=== PATIENT | female | born 1990 | race Caucasian/White ===

== ENCOUNTER 2022-05-23 14:06 | Emergency (ER) | payer MEDICAID, SELFPAY ==
[2022-05-23 14:39] VITALS: BP 126/99; PULSE 75; RESP 18; TEMP 36.1; O2SAT 96; BMI 29.3
--- NOTE | 2022-05-23 15:04 | ED_ITS ---
HPI - General Adult General Chief complaint: Altered Mental Status Stated complaint: Anxiety Time Seen by Provider: 05/23/22 14:41 History of Present Illness HPI narrative: This 32-year-old female comes in reporting lots of anxiety with associated insomnia. She states that she is moving and has lots of increased anxiety related to this. She has been taking her medications as prescribed and these are not helping her enough. She denies using any other medications or street drugs. She does not take alcohol. She denies having any suicidal plans or ideations. She states that she has slept about an hour each of the last 3 nights. She gets up and takes a shower which helps temporarily but still does not get back to sleep. Related Data Home Medications Medication Instructions Recorded Confirmed acetaminophen 500 mg tablet mg 05/23/22 aripiprazole 20 mg tablet mg 05/23/22 aripiprazole 30 mg tablet mg 05/23/22 buprenorphine 4 mg-naloxone 1 mg film 05/23/22 sublingual film (Suboxone) carisoprodol 350 mg tablet mg 05/23/22 cetirizine 10 mg tablet mg 05/23/22 eszopiclone 3 mg tablet mg 05/23/22 gabapentin 800 mg tablet mg 05/23/22 hydroxyzine HCl 50 mg tablet mg 05/23/22 hyoscyamine sulfate 0.125 mg tablet mg 05/23/22 ibuprofen 600 mg tablet mg 05/23/22 oxcarbazepine 300 mg tablet mg 05/23/22 prazosin 1 mg capsule mg 05/23/22 propranolol 10 mg tablet mg 05/23/22 rizatriptan 10 mg tablet mg 05/23/22 tizanidine 4 mg tablet mg 05/23/22 venlafaxine 75 mg tablet mg 05/23/22 Allergies Allergy/AdvReac Type Severity Reaction Status Date / Time amoxicillin Allergy Mild Verified 05/23/22 14:50 Review of Systems Status of ROS: Reports: 10 or more systems reviewed and unremarkable except as noted in History and below Narrative: Constitutional: No fevers, no weight gain or loss. Eyes: No discharge. No vision changes. HENT: No congestion, no sore throat, no ear pain. Cardiovascular: No chest pain, no palpitations. Respiratory: No shortness of breath, no wheezes, no cough. Gastrointestinal: No abdominal pain, no vomiting, no diarrhea. Genitourinary: No dysuria, no hematuria. Musculoskeletal: Normal range of motion. Skin: No rashes, no pruritis. Neurological: No dizziness, weakness, sensory change, speech change. Endo/Heme/Allergies: No bruising or bleeding. No polydipsia. Pysch: no suicidality. Anxiety with insomnia as described above. All other systems reviewed and are negative. Exam Narrative: Exam Narrative: Constitutional: Well-developed, well-nourished, no acute distress. HEENT: Normocephalic, atraumatic. Neck: Normal range of motion. Nontender. Supple. Heart: Intact distal pulses. Lungs: No chest discomfort. No wheezes, rhonchi, or rales. Abdomen: Nontender. Back: Normal range of motion. Extremities: Normal range of motion. No injury. Skin: Intact. No rash. Warm. No erythema or pallor. Neurologic: No altered sensation. No weakness. Alert and oriented. Psychiatric: The patient denies any suicidal thoughts or plans. She reports lots of anxiety. She is pleasant and cooperative. Nursing notes and vitals signs are reviewed. Const: Vital Signs, click to edit/add: Vital Signs - 24 hr 05/23/22 14:39 Temperature 97.0 F L Pulse Rate [Right Pulse Oximeter] 75 Respiratory Rate 18 Blood Pressure [Ri ght Upper Arm] 126/99 H Pulse Oximetry 96 Oxygen Delivery Me thod Room Air Course Vital Signs Vital signs: Initial Vital Signs Temperature 97.0 F L 05/23/22 14:39 Temperature Source Temporal Artery Scan 05/23/22 14:39 Pulse Rate 75 05/23/22 14:39 Pulse Rhythm 05/23/22 14:39 Respiratory Rate 18 05/23/22 14:39 Blood Pressure 126/99 H 05/23/22 14:39 Blood Pressure Mean 108 05/23/22 14:39 Blood Pressure Position Sitting 05/23/22 14:39 Pulse Oximetry 96 05/23/22 14:39 Oxygen Delivery Method 05/23/22 14:39 Vital Signs Temperature 97.0 F L 05/23/22 14:39 Pulse Rate 75 05/23/22 14:39 Respiratory Rate 18 05/23/22 14:39 Blood Pressure 126/99 H 05/23/22 14:39 Pulse Oximetry 96 05/23/22 14:39 Oxygen Delivery Method 05/23/22 14:39 Temperature 97.0 F L 05/23/22 14:39 Pulse Rate 75 05/23/22 14:39 Respiratory Rate 18 05/23/22 14:39 Blood Pressure 126/99 H 05/23/22 14:39 Pulse Oximetry 96 05/23/22 14:39 Oxygen Delivery Method 05/23/22 14:39 Medical Decision Making MDM Narrative Medical decision making narrative: This patient comes in with increased anxiety and states that she has not been able to connect with her primary physician recently as the physician is not available. She did receive a 1 mg Ativan tablet orally. I provided a prescription for 10 tablets of the same medicine and dose. She understands that we will not refill this out of the emergency department. She will need to follow-up with her primary physician for any ongoing management of anxiety. Discharge Plan Discharge Clinical Impression: Anxiety Patient Disposition: Home, Self-Care Condition: Unchanged Instructions: Anxiety (ED) Additional Instructions: Take medication as needed and prescribed. Follow up with primary physician for ongoing management needs. Prescriptions: No Action carisoprodol 350 mg tablet Label Comments: TAKE ONE TABLET BY MOUTH EVERY DAY AT BEDTIME NEEDED FOR SLEEP venlafaxine 75 mg tablet Label Comments: TAKE THREE TABLETS BY MOUTH EVERY DAY . cetirizine 10 mg tablet Label Comments: TAKE ONE TABLET BY MOUTH EVERY DAY NEEDED FOR ALLERGIES. tizanidine 4 mg tablet Label Comments: TAKE ONE TABLET BY MOUTH EVERY MORNING , AT NOON , AND TAKE THREE TABLETS BY MOUTH AT BEDTIME prazosin 1 mg capsule Label Comments: TAKE ONE CAPSULE BY MOUTH EVERY DAY FOR 3 DAYS, THEN TAKE TWO CAPSULES BY MOUTH EVERY DAY FOR 7 DAYS, THEN TAKE THREE CAPSULES BY MOUTH EVER rizatriptan 10 mg tablet Label Comments: TAKE 1 TABLET BY MOUTH WITH ONSET OF HEADACHE. MAY REPEAT IN 2 HOURS. MAX OF 30 MG IN 24 HOURS AND MAX OF 5 DAYS PER MONTH. hydroxyzine HCl 50 mg tablet Label Comments: TAKE ONE TABLET BY MOUTH EVERY 6 HOURS NEEDED FOR ANXIETY oxcarbazepine 300 mg tablet Label Comments: TAKE ONE TABLET BY MOUTH TWICE A DAY . acetaminophen 500 mg tablet Label Comments: TAKE 1 TABLET BY MOUTH EVERY 6 HOURS propranolol 10 mg tablet Label Comments: TAKE ONE TABLET BY MOUTH TWICE A DAY NEEDED gabapentin 800 mg tablet Label Comments: TAKE ONE TABLET BY MOUTH TWICE A DAY hyoscyamine sulfate 0.125 mg tablet Label Comments: TAKE TWO TABLETS BY MOUTH THREE TIMES A DAY NEEDED FOR DIARRHEA ibuprofen 600 mg tablet Label Comments: TAKE 1 TABLET BY MOUTH EVERY 6 HOURS aripiprazole 20 mg tablet Label Comments: TAKE ONE TABLET BY MOUTH EVERY DAY . aripiprazole 30 mg tablet Label Comments: TAKE ONE TABLET BY MOUTH EVERY DAY eszopiclone 3 mg tablet Label Comments: TAKE ONE TABLET BY MOUTH AT BEDTIME buprenorphine-naloxone [Suboxone] 4-1 mg film Label Comments: PLACE 1 FILM UNDER THE TONGUE TWICE DAILY IN THE MID MORNING AND MID AFTERNOON Stand Alone Forms: [facility] Info Instructions
[2022-05-23] MEDS: LORazepam 1 MG TABLET PO (15:19)
--- NOTE | 2022-05-26 14:40 | ED.NURSE ---
patient is calling requesting to get Ativan from the [facility] meds as [facility] will not fill unless PCP orders the medication. Talked to Dr. Trujillo about ordering and patient is aware to come to the registers desk ask for staff member and will give the [employer] code
== END 2022-05-23 15:51 | disposition home or self-care (01) ==
LOC: ED 15:22
PROVIDERS: Emergency Provider Emergency Medicine Emergency Medical Services
DX: F41.9 Anxiety disorder, unspecified (principal)
CPT/HCPCS: 99283; 99284; A9270